=== PATIENT | female | born 1955 | race Caucasian/White ===

== ENCOUNTER 2023-07-04 16:56 | Outpatient (REF) | payer MEDICARE, BC, SELFPAY | END 2023-07-04 16:57 | disposition home or self-care (01) | LOC: HO.HOSX 16:56 | PROVIDERS: Visit Provider Orthopaedic Surgery | DX: Z13.89 Encounter for screening for other disorder (principal) ==

== ENCOUNTER 2023-07-10 08:00 | Outpatient (AMB) | payer MEDICARE, BC, SELFPAY ==
--- NOTE | 2023-07-10 08:07 | MHC.OFFVIS ---
Intake Vital Signs 07/10/23 08:11 Height 5 ft 2 in Weight 125 lb BMI 22.9 Intake Visit Reasons: [employer]- RT Knee pain Intake Note: Kavitha is a 68 year old female who presents as a new patient with Right knee pain. Patient reports her pain has been going on for about 5 months and is a 5 on the 1-10 pain scale. She states going down stairs makes her pain worse. She has been going to formal physical therapy at [facility] in [place] which seemed to make her leg muscle spasm at night. She states it most of the pain is along the medial and posterior aspects of her knee. Allergies ibuprofen [IBUPROFEN] Allergy (Severe, Verified 07/10/23 08:13) ITCHY THROAT/LIPS sulfamethoxazole [From BACTRIM] Allergy (Severe, Verified 07/10/23 08:13) ITCHY THROAT/LIPS trimethoprim [From BACTRIM] Allergy (Severe, Verified 07/10/23 08:13) ITCHY THROAT/LIPS Medication List - Last Reconciled 07/10/23 by Rony Jackson MD amlodipine 3.75 mg PO BEDTIME calcium citrate 250 mg PO DAILY cholecalciferol (vitamin D3) 50 mcg PO DAILY lorazepam 1 mg PO DAILY PRN sertraline (Zoloft) 25 mg PO DAILY PFSH Surgical History (Updated 07/10/23 @ 08:21 by Linh Rojas CMA) H/O section Hx of appendectomy Hx of cholecystectomy (~2009) History of carpal tunnel surgery of right wrist (Unknown) Hx of shoulder surgery (Unknown) Social History (Updated 07/10/23 @ 08:18 by Linh Rojas CMA) Patient Tobacco Use Status: Never used Tobacco Current occupational status: retired Current occupation: retired nurse, Right hand dominate Physical Exam Vital Signs: BMI result Body Mass Index 22.9 Const Other: Well-nourished well-developed very friendly female awake alert and oriented x3 in no acute distress Extrem Other: Bilateral lower extremity examination shows good capillary refill, no skin lesions noted, normal sensation light touch Right knee examination shows a minimal effusion, tenderness along her medial joint line, positive Chanell's test, no instability Results Reviewed Results Reviewed: X-rays of the patient's right knee show mild diffuse joint space narrowing, no acute bony abnormalities Assessment & Plan Assessment & Plan (1) Right knee pain: Code(s): M25.561 - Pain in right knee Plan Ms. Joya presents with right knee pain due to early degenerative joint disease as well as possible tearing of her medial meniscus. Thus, I will send her for an MRI of her right knee for further evaluation. I will see her back once her MRI is completed to discuss the findings and treatment options. Feel free to call me at any time should questions regarding her orthopedic management arise. I spent 22 minutes in reviewing the patient's records and imaging studies, seeing the patient and documenting in the medical record. Orders: Orders MR knee RT wo con Today S83.241A - Other tear of medial meniscus, current injury, right knee, initial encounter XR knee RT 3V 07/04/23 M25.561 - Pain in right knee XR knee RT 3V Today M25.561 - Pain in right knee Coding Level of Care Code New Pt Level 2 (58424) Diagnoses Right knee pain M25.561
[2023-07-10 08:11] VITALS: BMI 22.9
== END 2023-07-10 08:46 | disposition home or self-care (01) ==
LOC: HO.HOS 08:00
PROVIDERS: PCP Internal Medicine; Visit Provider Orthopaedic Surgery
DX: M25.561 Pain in right knee (principal)
CPT/HCPCS: 99202

== ENCOUNTER 2023-07-10 11:38 | Outpatient (REF) | payer MEDICARE, BC, SELFPAY ==
--- NOTE | ~2023-07-10 | XR_ITS ---
EXAMINATION: XR KNEE, RIGHT CLINICAL INFORMATION: Pain. COMPARISON: None available. TECHNIQUE: Frontal, lateral and axial of the right knee are submitted. FINDINGS: Bony alignment and mineralization are normal. The lateral, medial and patellofemoral joint space compartments are well-maintained. There is chondrocalcinosis. No fracture, dislocation or significant joint effusion is seen. There is no foreign body. XR/XR knee RT 3V IMPRESSION: 1. No right knee fracture, dislocation or joint effusion is seen. 2. There is chondrocalcinosis, which may be associated with CPPD, gout or hypercalcinosis.
== END 2023-07-10 11:39 | disposition home or self-care (01) ==
LOC: HO.HOSX 11:38
PROVIDERS: Visit Provider Orthopaedic Surgery
DX: M25.561 Pain in right knee (principal)
CPT/HCPCS: 73562; 99202

== ENCOUNTER 2023-08-02 07:27 | Outpatient (REF) | payer MEDICARE, BC, SELFPAY ==
--- NOTE | ~2023-08-02 | MR_ITS ---
EXAMINATION: MR KNEE WITHOUT CONTRAST, RIGHT CLINICAL INFORMATION: Tear of the medial meniscus. COMPARISON: X-ray of the right knee July 2023. TECHNIQUE: MRI of the knee without contrast was performed using routine sequences on a high-field scanner. FINDINGS: MENISCI: Medial Meniscus: There is an oblique increased signal extending from the periphery of the meniscus to the tibial articular surface involving the posterior body and posterior horn. There is additional irregular abnormal signal extending lateral aspect of the posterior horn and posterior root indicative of additional meniscal tearing. Overall findings indicative of complex tearing of the body and posterior horn and posterior root of the medial meniscus. Anterior horn intact. Lateral Meniscus: There is a linear focus of increased signal of the posterior horn extending to the tibial articular surface on a single sagittal image 18 series 4 indicative of a probable tear. There is a meniscal cyst present along the periphery of the body of the meniscus extending anterior to posterior. The cyst measures 3 x 4 x 23 mm. This presumably is related to an additional meniscal tear in the body although no clear extension of abnormal signal extends to the articular surfaces. LIGAMENTS: Cruciate: Intact. Collateral: Intact. EXTENSOR MECHANISM: Intact. ARTICULAR CARTILAGE/BONE: Patellofemoral Compartment: There is a focal 5 x 4 mm area of high-grade cartilage loss in the proximal median ridge of the patella with associated subchondral cystic change and edema. There is some additional partial-thickness cartilage loss along the distal medial facet of the patella. There is scattered cartilage heterogeneity in the medial trochlea and trochlear sulcus with some minimal subchondral cystic change. Overall findings indicative of [id number] patellofemoral arthrosis. Medial Compartment: There is focal cartilage heterogeneity and fissuring in the posterior weightbearing femoral articular surface over an area measuring approximately 15 mm AP and 10 mm transverse. There is subchondral edema medial femoral condyle perhaps related to a subtle subchondral fracture/insufficiency fracture without displacement or articular collapse. There is an additional small linear focus of low T1 low T2 signal paralleling the subchondral bone of the weightbearing medial plateau with surrounding edema likely reflecting a subtle insufficiency fracture nondisplaced. Findings compatible with mild arthrosis with probable insufficiency fracture of the tibial plateau and bone contusion or insufficiency fracture of medial femoral condyle along with mild arthrosis of the compartment. Lateral Compartment: Normal. JOINT FLUID AND BURSAE: There is a small joint effusion and moderate-sized Guadalupe's cyst with some synovitis. MR/MR knee RT wo con IMPRESSION: 1. Complex tear of the medial meniscus. 2. Probable tear of the posterior horn and tear of the peripheral body of the lateral meniscus with meniscal cyst. 3. [id number] patellofemoral arthrosis. 4. Mild arthrosis of the medial compartment. 5. Probable insufficiency fracture of the medial tibial plateau and bone contusion or insufficiency fracture of the medial femoral condyle. 6. Joint effusion and Guadalupe's cyst.
== END 2023-08-02 07:28 | disposition home or self-care (01) ==
LOC: HO.MRI 07:27
PROVIDERS: PCP Internal Medicine; Visit Provider Orthopaedic Surgery
DX: S83.241A Other tear of medial meniscus, current injury, right knee, initial encounter (principal); X58.XXXA Exposure to other specified factors, initial encounter; Y93.9 Activity, unspecified; Y92.9 Unspecified place or not applicable; Y99.9 Unspecified external cause status
CPT/HCPCS: 73721

== ENCOUNTER 2023-08-15 09:27 | Outpatient (AMB) | payer MEDICARE, BC, SELFPAY ==
[2023-08-15 09:34] VITALS: BMI 22.9
--- NOTE | 2023-08-15 09:34 | MHC.OFFVIS ---
Intake Vital Signs 08/15/23 09:34 Height 5 ft 2 in Weight 125 lb BMI 22.9 Intake Visit Reasons: ov- RT Knee MRI Review Intake Note: Kavitha is a 68 year old female who presents for her Right knee MRI review. The patient reports mild intermittent discomfort in her right knee. Patient states that she has a sleeve which she wears when she is walking which gives her fairly good support. The patient states that her symptoms are tolerable to her at this time. Allergies ibuprofen [IBUPROFEN] Allergy (Severe, Verified 08/15/23 09:37) ITCHY THROAT/LIPS sulfamethoxazole [From BACTRIM] Allergy (Severe, Verified 08/15/23 09:37) ITCHY THROAT/LIPS trimethoprim [From BACTRIM] Allergy (Severe, Verified 08/15/23 09:37) ITCHY THROAT/LIPS Medication List - Last Reconciled 08/15/23 by Rony Jackson MD amlodipine 3.75 mg PO BEDTIME calcium citrate 250 mg PO DAILY cholecalciferol (vitamin D3) 50 mcg PO DAILY lorazepam 1 mg PO DAILY PRN sertraline (Zoloft) 25 mg PO DAILY PFSH Surgical History H/O section Hx of appendectomy Hx of cholecystectomy (~2009) History of carpal tunnel surgery of right wrist (Unknown) Hx of shoulder surgery (Unknown) Social History Patient Tobacco Use Status: Never used Tobacco Current occupational status: retired Current occupation: retired nurse, Right hand dominate Physical Exam Vital Signs: BMI result Body Mass Index 22.9 Const Other: Well-nourished well-developed very friendly female awake alert and oriented x3 in no acute distress Extrem Other: Right knee examination shows a minimal effusion, minimal crepitus with range of motion Results Reviewed Results Reviewed: MRI of the patient's right knee shows mild to moderate diffuse degenerative changes as well as tearing of her medial and lateral menisci Assessment & Plan Assessment & Plan (1) Right knee pain: Code(s): M25.561 - Pain in right knee Plan Ms. Joya presents with intermittent right knee discomfort due to early degenerative joint disease as well as tearing of her medial and lateral menisci. I had a lengthy discussion with the patient regarding the treatment options. At this point the patient's symptoms are tolerable to her. She will continue wearing her sleeve when she walks. She will follow up with me on an as-needed basis should her symptoms worsen in any way. Feel free to call me at any time should questions regarding her orthopedic management arise. I spent 19 minutes in reviewing the patient's records and imaging studies, seeing the patient and documenting in the medical record. Coding Level of Care Code Est Pt Level 2 (31892) Diagnoses Right knee pain M25.561
== END 2023-08-15 09:55 | disposition home or self-care (01) ==
PROVIDERS: PCP Internal Medicine; Visit Provider Orthopaedic Surgery
DX: M25.561 Pain in right knee (principal)
CPT/HCPCS: 99212

== ENCOUNTER → 2023-08-15 09:27 | Outpatient (BNVA) | payer MEDICARE, BC, SELFPAY | PROVIDERS: PCP Internal Medicine; Visit Provider Orthopaedic Surgery | DX: M25.561 Pain in right knee (principal) | CPT/HCPCS: 99212 ==